=== PATIENT | female | born 1945 | race Caucasian/White ===

== ENCOUNTER 2020-10-02 11:54 | Emergency (ER) | payer MEDICARE, OTHER ==
[2020-10-02] MEDS ORDERED: Sodium Chloride 0.9% 10 ML Syringe FLUSH PRN (12:38)
--- NOTE | 2020-10-02 13:15 | EDM.PDOC ---
ED HPI GENERAL MEDICAL PROBLEM - General Chief Complaint: Respiratory Problem Stated Complaint: SOB/TROUBLE WALKING Time Seen by Provider: 10/02/20 12:36 Source of Information: Reports: Patient, RN Notes Reviewed - History of Present Illness INITIAL COMMENTS - FREE TEXT/NARRATIVE: 75 Yr old female comes in with generalized weakness, dyspnea. She had mild sx yesterday, much worse this morning. No chest pain, Abd pain, vomiting. Very occasional cough. No fever or chills. Hx of severe anemia with a Hgb of around 6.2 in June 2 months ago, etiology unknown or unclear. She states she saw her Business Support Manager just last week 5 days ago and was told everything was good at that time. She feels kind of OK at rest but today is very short of breath with exertion. Of note her oxygen was 68 per cent on room air at time of triage. - Related Data Allergies Allergy/AdvReac Type Severity Reaction Status Date / Time No Known Allergies Allergy Verified 10/02/20 12:11 Home Meds: Home Meds . [No Known Home Meds] 10/02/20 [History] Past Medical History Respiratory History: Reports: Asthma - Past Surgical History Female Surgical History: Reports: Hysterectomy Social & Family History - Tobacco Use Tobacco Use Status *Q: Never Tobacco User - Caffeine Use Caffeine Use: Reports: None - Recreational Drug Use Recreational Drug Use: No ED ROS GENERAL - Review of Systems Review Of Systems: See Below Constitutional: Denies: Fever, Chills, Diaphoresis HEENT: Reports: No Symptoms Respiratory: Reports: Shortness of Breath, Cough (occasional) Cardiovascular: Denies: Chest Pain GI/Abdominal: Denies: Abdominal Pain, Hematochezia, Melena, Nausea, Vomiting : Reports: No Symptoms Musculoskeletal: Reports: No Symptoms Neurological: Reports: Dizziness, Weakness (mild generalized). Denies: Trouble Speaking ED EXAM, GENERAL - Physical Exam Exam: See Below General Appearance: Alert, No Apparent Distress (at rest on oxygen) Head: Atraumatic Neck: Supple Respiratory/Chest: Lungs Clear, Respiratory Distress (mild tachypnea). No: Rales, Rhonchi, Wheezing Cardiovascular: Tachycardia GI/Abdominal: Soft, Non-Tender Back Exam: No: CVA Tenderness (L), CVA Tenderness (R) Extremities: Normal Inspection. No: Pedal Edema, Leg Pain Neurological: Alert, Oriented, No Motor/Sensory Deficits Skin Exam: Warm, Dry, Normal Color #1 Interpretation EKG Date: 10/02/20 Rhythm: NSR [place]: Normal P-Wave: Present QRS: Other (q waves inf. and ant. leads) ST-T: Normal Course - Vital Signs Last Recorded V/S: Last Vital Signs Temp 98.3 F 10/02/20 12:05 Pulse 100 10/02/20 12:05 Resp 24 H 10/02/20 12:05 BP 136/72 10/02/20 12:05 Pulse Ox 97 10/02/20 12:39 - Orders/Labs/Meds Orders: Active Orders 24 hr Category Date Time Status EKG 12 Lead [EKG Documentation Completion] [RC] STAT Care 10/02/20 12:39 Active Oxygen Therapy [RC] ASDIRECTED Care 10/02/20 12:39 Active Peripheral IV Care [RC] . DIRECTED Care 10/02/20 12:39 Active Chest PE [Ang Chest] [CT] Stat Exams 10/02/20 14:20 Taken Sodium Chloride 0.9% [Normal Saline] 100 ml Med 10/02/20 14:45 Active IV ASDIRECTED Sodium Chloride 0.9% [Saline Flush] Med 10/02/20 12:38 Active 10 ml FLUSH ASDIRECTED PRN Peripheral IV Insertion Adult [OM.PC] Stat Oth 10/02/20 12:39 Ordered Medication Orders Sodium Chloride (Normal Saline) 100 mls @ 60 mls/hr IV ASDIRECTED DALLIN Last Admin: 10/02/20 15:01 Dose: 60 mls/hr Documented by: WALLACE Sodium Chloride (Saline Flush) 10 ml FLUSH ASDIRECTED PRN PRN Reason: Keep Vein Open Last Admin: 10/02/20 12:49 Dose: 10 ml Documented by: ABDOUL Labs: Laboratory Tests 10/02/20 10/02/20 10/02/20 Range/Units 12:31 13:13 13:21 WBC (3.98-10.04) K/mm3 RBC (3.98-5.22) M/mm3 Hgb (11.2-15.7) gm/dl Hct (34.1-44.9) % MCV (79.4-94.8) fl MCH (25.6-32.2) pg MCHC (32.2-35.5) g/dl RDW Std Deviation (36.4-46.3) fL Plt Count (182-369) K/mm3 MPV (9.4-12.3) fl Neut % (Auto) (34.0-71.1) % Lymph % (Auto) (19.3-51.7) % [place] % (Auto) (4.7-12.5) % Eos % (Auto) (0.7-5.8) Baso % (Auto) (0.1-1.2) % Neut # (Auto) (1.56-6.13) K/mm3 Lymph # (Auto) (1.18-3.74) K/mm3 [place] # (Auto) (0.24-0.36) K/mm3 Eos # (Auto) (0.04-0.36) K/mm3 Baso # (Auto) (0.01-0.08) K/mm3 D-Dimer, Quantitative (0.19-0.50) mg/L Puncture Site Lt radial ABG pH 7.48 H (7.35-7.45) ABG pCO2 29.3 L (35.0-45.0) mmHg ABG pO2 48.0 L (80.0-100.0) mmHg ABG HCO3 21.6 L (22.0-26.0) meq/L ABG O2 Saturation 82.0 L (96.0-97.0) % ABG Base Excess -0.8 (-2-2.0) Ben Test Positive A-a Gradient 65 mmHg O2 Delivery Device Room air FiO2 21.00 (21.00-100.00) % Sodium (136-145) mEq/L Potassium (3.5-5.1) mEq/L Chloride (98-107) mEq/L Carbon Dioxide (21-32) mEq/L Anion Gap (5-15) BUN (7-18) mg/dL Creatinine (0.55-1.02) mg/dL Est Cr Clr Drug Dosing mL/min Estimated GFR (MDRD) (>60) mL/min BUN/Creatinine Ratio (14-18) Glucose (83-115) mg/dL Calcium (8.5-10.1) mg/dL Ferritin (8-252) ng/ml Total Bilirubin (0.2-1.0) mg/dL AST (15-37) U/L ALT (14-59) U/L Alkaline Phosphatase (46-116) U/L Lactate Dehydrogenase (81-234) U/L Troponin I (0.00-0.056) ng/mL C-Reactive Protein 17.1 H* (<1.0) mg/dL NT-Pro-B Natriuret Pep (0-450) pg/mL Total Protein (6.4-8.2) g/dl Albumin (3.4-5.0) g/dl Globulin gm/dL Albumin/Globulin Ratio (1-2) SARS-CoV-2 RNA (KENDALL) Negative (NEGATIVE) 10/02/20 10/02/20 10/02/20 Range/Units 13:21 13:21 13:21 WBC 9.32 (3.98-10.04) K/mm3 RBC 3.27 L (3.98-5.22) M/mm3 Hgb 10.6 L (11.2-15.7) gm/dl Hct 31.8 L (34.1-44.9) % MCV 97.2 H D (79.4-94.8) fl MCH 32.4 H (25.6-32.2) pg MCHC 33.3 (32.2-35.5) g/dl RDW Std Deviation 61.9 H (36.4-46.3) fL Plt Count 142 L (182-369) K/mm3 MPV 10.5 (9.4-12.3) fl Neut % (Auto) 72.3 H (34.0-71.1) % Lymph % (Auto) 12.6 L (19.3-51.7) % [place] % (Auto) 14.5 H (4.7-12.5) % Eos % (Auto) 0.2 L (0.7-5.8) Baso % (Auto) 0.1 (0.1-1.2) % Neut # (Auto) 6.74 H (1.56-6.13) K/mm3 Lymph # (Auto) 1.17 L (1.18-3.74) K/mm3 [place] # (Auto) 1.35 H (0.24-0.36) K/mm3 Eos # (Auto) 0.02 L (0.04-0.36) K/mm3 Baso # (Auto) 0.01 (0.01-0.08) K/mm3 D-Dimer, Quantitative 0.88 H (0.19-0.50) mg/L Puncture Site ABG pH (7.35-7.45) ABG pCO2 (35.0-45.0) mmHg ABG pO2 (80.0-100.0) mmHg ABG HCO3 (22.0-26.0) meq/L ABG O2 Saturation (96.0-97.0) % ABG Base Excess (-2-2.0) Ben Test A-a Gradient mmHg O2 Delivery Device FiO2 (21.00-100.00) % Sodium 131 L (136-145) mEq/L Potassium 4.8 (3.5-5.1) mEq/L Chloride 97 L (98-107) mEq/L Carbon Dioxide 24 (21-32) mEq/L Anion Gap 14.8 (5-15) BUN 20 H (7-18) mg/dL Creatinine 1.3 H (0.55-1.02) mg/dL Est Cr Clr Drug Dosing 35.24 mL/min Estimated GFR (MDRD) 40 (>60) mL/min BUN/Creatinine Ratio 15.4 (14-18) Glucose 99 (83-115) mg/dL Calcium 9.8 (8.5-10.1) mg/dL Ferritin (8-252) ng/ml Total Bilirubin 2.6 H (0.2-1.0) mg/dL AST 17 (15-37) U/L ALT 17 (14-59) U/L Alkaline Phosphatase 67 (46-116) U/L Lactate Dehydrogenase 328 H (81-234) U/L Troponin I 0.377 H* (0.00-0.056) ng/mL C-Reactive Protein (<1.0) mg/dL NT-Pro-B Natriuret Pep (0-450) pg/mL Total Protein 7.0 (6.4-8.2) g/dl Albumin 3.2 L (3.4-5.0) g/dl Globulin 3.8 gm/dL Albumin/Globulin Ratio 0.8 L (1-2) SARS-CoV-2 RNA (KENDALL) (NEGATIVE) 10/02/20 10/02/2020 Range/Units 13:21 13:21 15:01 WBC (3.98-10.04) K/mm3 RBC (3.98-5.22) M/mm3 Hgb (11.2-15.7) gm/dl Hct (34.1-44.9) % MCV (79.4-94.8) fl MCH (25.6-32.2) pg MCHC (32.2-35.5) g/dl RDW Std Deviation (36.4-46.3) fL Plt Count (182-369) K/mm3 MPV (9.4-12.3) fl Neut % (Auto) (34.0-71.1) % Lymph % (Auto) (19.3-51.7) % [place] % (Auto) (4.7-12.5) % Eos % (Auto) (0.7-5.8) Baso % (Auto) (0.1-1.2) % Neut # (Auto) (1.56-6.13) K/mm3 Lymph # (Auto) (1.18-3.74) K/mm3 [place] # (Auto) (0.24-0.36) K/mm3 Eos # (Auto) (0.04-0.36) K/mm3 Baso # (Auto) (0.01-0.08) K/mm3 D-Dimer, Quantitative (0.19-0.50) mg/L Puncture Site ABG pH (7.35-7.45) ABG pCO2 (35.0-45.0) mmHg ABG pO2 (80.0-100.0) mmHg ABG HCO3 (22.0-26.0) meq/L ABG O2 Saturation (96.0-97.0) % ABG Base Excess (-2-2.0) Ben Test A-a Gradient mmHg O2 Delivery Device FiO2 (21.00-100.00) % Sodium (136-145) mEq/L Potassium (3.5-5.1) mEq/L Chloride (98-107) mEq/L Carbon Dioxide (21-32) mEq/L Anion Gap (5-15) BUN (7-18) mg/dL Creatinine (0.55-1.02) mg/dL Est Cr Clr Drug Dosing mL/min Estimated GFR (MDRD) (>60) mL/min BUN/Creatinine Ratio (14-18) Glucose (83-115) mg/dL Calcium (8.5-10.1) mg/dL Ferritin 977 H (8-252) ng/ml Total Bilirubin (0.2-1.0) mg/dL AST (15-37) U/L ALT (14-59) U/L Alkaline Phosphatase (46-116) U/L Lactate Dehydrogenase (81-234) U/L Troponin I 0.326 H* (0.00-0.056) ng/mL C-Reactive Protein (<1.0) mg/dL NT-Pro-B Natriuret Pep 3850 H (0-450) pg/mL Total Protein (6.4-8.2) g/dl Albumin (3.4-5.0) g/dl Globulin gm/dL Albumin/Globulin Ratio (1-2) SARS-CoV-2 RNA (KENDALL) (NEGATIVE) Meds: Medications Generic Name Dose Route Start Last Admin Trade Name Namq PRN Reason Stop Dose Admin Sodium Chloride 100 mls @ 60 mls/hr 10/02/20 14:45 10/02/20 15:01 Normal Saline IV 60 mls/hr ASDIRECTED DALLIN Administration Sodium Chloride 10 ml 10/02/20 12:38 10/02/20 12:49 Saline Flush FLUSH 10 ml ASDIRECTED PRN Administration Keep Vein Open Discontinued Medications Generic Name Dose Route Start Last Admin Trade Name Robby PRN Reason Stop Dose Admin Furosemide 40 mg 10/02/20 15:40 10/02/20 15:53 Lasix IVPUSH 10/02/20 15:41 40 mg NOW ONE Administration Iopamidol 100 ml 10/02/20 14:31 10/02/20 15:00 Isovue-370 (76%) IVPUSH 10/02/20 14:32 100 ml ONETIME ONE Administration Sodium Chloride 10 ml 10/02/20 14:31 10/02/20 15:00 Saline Flush FLUSH 10/02/20 14:32 10 ml ONETIME ONE Administration - Re-Assessments/Exams Free Text/Narrative Re-Assessment/Exam: 10/02/20 13:45. Trop. has come back elevated at 0.377, D dimer 0.88. Hgb 10.4. CXR did not show acute findings. Covid screen did come back negative. CT Angio chest was neg. for PE, does show pulmonary vascular congestion, pulmonary nodule R middle lobe, possible small airways disease, superimposed viral pneumonitis difficult to exclude. 10/02/20 17:05. We are once again on diversion for admissions. [facility] also on diversion. Dr Don, Hospitalist for [facility] does accept patient for admission. Have given lasix 40 mg IV. She wanted to go the bathroom off oxygen. She did get short of breath and did drop her sats to 74 % soing that. O2 sats do come up and maintain mid 90's with 02 at 2 L NC. We will be sending her by ground ambulance. Departure - Departure Time of Disposition: 17:07 Disposition: DC/Tfer to Acute Hospital 02 Condition: Fair Clinical Impression: Hypoxia CHF (congestive heart failure) Qualifiers: Heart failure type: unspecified Heart failure chronicity: acute Qualified Code(s): I50.9 - Heart failure, unspecified - Discharge Information Referrals: Lisy Wayne MD [Primary Care Provider] - Forms: ED Department Discharge Sepsis Event Note (ED) - Evaluation Sepsis Screening Result: No Definite Risk - Focused Exam Vital Signs: Vital Signs Temp Pulse Resp BP Pulse Ox Pulse Ox 10/02/20 12:39 97 10/02/20 12:05 98.3 F 100 24 H 136/72 68 L - My Orders Last 24 Hours: My Active Orders 10/02/20 12:38 Sodium Chloride 0.9% [Saline Flush] 10 ml FLUSH ASDIRECTED PRN 10/02/20 12:39 EKG 12 Lead [EKG Documentation Completion] [RC] STAT Oxygen Therapy [RC] ASDIRECTED Peripheral IV Care [RC] . DIRECTED Peripheral IV Insertion Adult [OM.PC] Stat 10/02/20 14:20 Chest PE [Ang Chest] [CT] Stat 10/02/20 14:45 Sodium Chloride 0.9% [Normal Saline] 100 ml IV ASDIRECTED - Assessment/Plan Last 24 Hours: My Active Orders 10/02/20 12:38 Sodium Chloride 0.9% [Saline Flush] 10 ml FLUSH ASDIRECTED PRN 10/02/20 12:39 EKG 12 Lead [EKG Documentation Completion] [RC] STAT Oxygen Therapy [RC] ASDIRECTED Peripheral IV Care [RC] . DIRECTED Peripheral IV Insertion Adult [OM.PC] Stat 10/02/20 14:20 Chest PE [Ang Chest] [CT] Stat 10/02/20 14:45 Sodium Chloride 0.9% [Normal Saline] 100 ml IV ASDIRECTED
--- NOTE | 2020-10-02 14:18 | CR ---
PROCEDURE INFORMATION: Exam: XR Chest, 1 View Exam date and time: 10/02/2020 12:36 PM Age: 75 years old Clinical indication: Dyspnea TECHNIQUE: Imaging protocol: XR of the chest Views: Frontal portable view of the chest. COMPARISON: No relevant prior studies available. FINDINGS: Tubes, catheters and devices: EKG leads are present overlying the chest. Lungs: The lungs are clear bilaterally. The pulmonary vasculature is normal. Pleural space: No pleural effusion. No pneumothorax. Heart/Mediastinum: The heart is normal in size and contour. Bones/joints: No acute chest wall abnormality identified. IMPRESSION: No acute cardiopulmonary abnormality identified. Thank you for allowing us to participate in the care of your patient. Dictated and Authenticated by: Carlos Velasco MD 10/02/2020 2:26 PM Central Time ([place] & [place]) [facility]ENTERScarlet
[2020-10-02] MEDS ORDERED: Iopamidol 755 Mg/ML 100 ML Bottle IVPUSH ONE (14:31)
[2020-10-02] MEDS ORDERED: Sodium Chloride 0.9% 10 ML Syringe FLUSH ONE (14:31)
[2020-10-02] MEDS ORDERED: Sodium Chloride 0.9% 100 ML IV SCH (14:45)
[2020-10-02] MEDS ORDERED: Furosemide 40 MG/4 ML VIAL IVPUSH ONE (15:40)
--- NOTE | 2020-10-02 16:57 | CT ---
PROCEDURE INFORMATION: Exam: CT Chest With Contrast Exam date and time: 10/02/2020 3:43 PM Age: 75 years old Clinical indication: Patient HX: Dyspnea hypoxia pos d dimer TECHNIQUE: Imaging protocol: Computed tomography of the chest with intravenous contrast. 3D rendering (Not supervised by radiologist): MIP reconstructed images were created by the technologist. Radiation optimization: All CT scans at this facility use at least one of these dose optimization techniques: automated exposure control; mA and/or kV adjustment per patient size (includes targeted exams where dose is matched to clinical indication); or iterative reconstruction. COMPARISON: CR Chest 1V Frontal 10/02/2020 12:36 PM FINDINGS: Thyroid: The partially imaged bilateral thyroid lobes are unremarkable. Lungs: Mosaic lung attenuation is present, alternating with ground-glass opacities, consistent with small airways or small vessels disease. A 5.3 x 2.7 x 6.7 mm noncalcified pulmonary nodule is noted in the lateral segment of the right middle lobe (LOC 311.6). Pleural space: No pneumothorax. No pleural effusion. Heart: Proximal LAD coronary artery calcifications. Mediastinal space: A small sliding hiatal hernia is present above the level of the diaphragm. Pulmonary arteries: The pulmonary vasculature is congested. Aorta: Mild aortic arch, branch, and descending thoracic aortic atherosclerotic calcification without ectasia. Lymph nodes: No enlarged lymph nodes. Liver: Focal hypoattenuation of the hepatic left lobe medial segment is noted adjacent to the falciform ligament fissure, likely representing focal fatty infiltration. Kidneys and ureters: Left renal 5.7 cm benign simple cyst. Bones/joints: Degenerative disk disease is present at mid-thoracic spine disk levels. Soft tissues: Unremarkable. IMPRESSION: 1. No pulmonary embolism identified. 2. No thoracic aortic aneurysm or dissection identified. 3. Possible small airways/small vessels disease. Superimposed pneumonitis, including viral pneumonitis, is difficult to exclude. Clinical correlation is recommended. 4. Right middle lobe noncalcified pulmonary nodule. If low risk for malignancy, recommend follow-up chest CT at 6-12 months, and consider CT followup at 18-24 months. If high risk for malignancy recommend CT at 6-12 months then repeat at 18-24 months (Elham et al., Fleischner Society, 2017). 5. Pulmonary vascular congestion. 6. Coronary atherosclerosis. 7. Left renal benign simple cyst. 8. Small hiatal hernia. COMMENTS: Consistent with the [employer]'s Incidental Findings Committee white paper (J Am Germania Radiol 2018): Any incidental renal lesion less than 1 cm or classified as too small to characterize, or any incidental cystic renal lesion characterized as simple- appearing, is likely benign. No follow-up imaging is recommended for these lesions per consensus recommendations based on imaging criteria. Thank you for allowing us to participate in the care of your patient. Dictated and Authenticated by: Carlos Velasco MD 10/02/2020 4:22 PM Central Time ([place] & [place]) [facility]
== END 2020-10-02 18:00 ==
LOC: JD.ED 11:54
DX: I50.9 Heart failure, unspecified (principal); R09.02 Hypoxemia; J45.909 Unspecified asthma, uncomplicated; Z20.828 Contact with and (suspected) exposure to other viral communicable diseases
CPT/HCPCS: 36415; 36600; 71045; 71275; 80053; 82728; 82803; 83615; 83880; 84484; 85025; 85379; 86140; 93005; 96374; 99285; J1940; Q9967; U0002; 93010; 99284

== ENCOUNTER 2020-12-20 17:54 | Inpatient (IN) | payer MEDICARE, OTHER ==
[2020-12-20] MEDS ORDERED: Sodium Chloride 0.9% 10 ML Syringe FLUSH PRN (18:14)
[2020-12-20] MEDS ORDERED: Ondansetron 4 MG/2 ML SDV IVPUSH ONE (18:28)
--- NOTE | 2020-12-20 18:34 | EDM.PDOC ---
ED HPI GENERAL MEDICAL PROBLEM - General Chief Complaint: Respiratory Problem Stated Complaint: SOB COUGH WEAK Time Seen by Provider: 12/20/20 18:05 Source of Information: Reports: Patient, RN Notes Reviewed History Limitations: Reports: No Limitations - History of Present Illness INITIAL COMMENTS - FREE TEXT/NARRATIVE: Patient is a 75-year-old female who presents to the ED for evaluation of her COVID-19 illness. Patient states that she has been feeling ill for the last 10 or 12 days and they have not really improved. She was tested for COVID-19 on Thursday, and did get positive results today. Patient states she is extremely short of breath, she cannot do much of all without getting winded. With ambulation, the patient's O2 sats were 85% on room air when she got here, but did improve to roughly 91 to 92%. Patient is fairly tachypneic in the ER, respiratory rate of 28 to 30 breaths/min, pulse is 105 bpm, temperature is 98.3 F, but the patient feels warmer than that. Blood pressure is 144/70. Patient notes that she is not taking anything for her symptoms. She does note that her is also sick at home. She relates a hospitalization for a viral pneumon ia in September, for about a week. Primary care provider is Dr. Lisy Wayne, she did call her today for consultation and Dr. Wayne directed her to come to the ER for evaluation and possible IV therapy. Patient is also complaining of some phlegm in her throat, that is rather thick that she just cannot get up. She has not taken any medications for that. She does note that she is quite nauseous as well. - Related Data Allergies Allergy/AdvReac Type Severity Reaction Status Date / Time No Known Allergies Allergy Verified 12/20/20 18:05 Home Meds: Home Meds Tiotropium [Spiriva] 18 mcg INH BID 12/20/20 [History] Past Medical History HEENT History: Reports: Impaired Vision Respiratory History: Reports: Asthma, Pneumonia, Recurrent - Infectious Disease History Infectious Disease History: Reports: Novel Coronavirus (12/17/2020) - Past Surgical History Female Surgical History: Reports: Hysterectomy Social & Family History - Tobacco Use Tobacco Use Status *Q: Never Tobacco User - Caffeine Use Caffeine Use: Reports: None - Recreational Drug Use Recreational Drug Use: No ED ROS GENERAL - Review of Systems Review Of Systems: Comprehensive ROS is negative, except as noted in HPI. ED EXAM, GENERAL - Physical Exam Exam: See Below Exam Limited By: No Limitations General Appearance: Alert, WD/WN, No Apparent Distress Throat/Mouth: Normal Inspection, Normal Lips, Normal Teeth, Normal Gums, Normal Oropharynx, Normal Voice, No Airway Compromise Head: Atraumatic, Normocephalic Neck: Normal Inspection Respiratory/Chest: No Respiratory Distress, Lungs Clear, Normal Breath Sounds, No Accessory Muscle Use, Chest Non-Tender Cardiovascular: Normal Peripheral Pulses, Regular Rate, Rhythm, No Edema Peripheral Pulses: 2+: Radial (L), Radial (R) GI/Abdominal: Normal Bowel Sounds, Soft, Non-Tender, No Distention, No Mass Extremities: Normal Inspection, Normal Capillary Refill Neurological: Alert, Oriented, Normal Cognition, No Motor/Sensory Deficits Psychiatric: Normal Affect, Normal Mood Skin Exam: Warm, Dry, Intact, Normal Color, No Rash #1 Interpretation EKG Date: 12/20/20 Time: 18:11 Rhythm: NSR Rate (Beats/Min): 99 Drexel: LAD-Left Drexel Deviation (-67 ) P-Wave: Present QRS: Normal ST-T: Normal QT: Normal Comparison: NA - No Prior EKG EKG Interpretation Comments: No obvious ischemia or acute ST changes noted, reviewed by myself and Dr. Lugo. Course - Vital Signs Last Recorded V/S: Last Vital Signs Temp 98.3 F 12/20/20 18:02 Pulse 105 H 12/20/20 18:02 Resp 28 H 12/20/20 18:02 BP 144/70 H 12/20/20 18:02 Pulse Ox 90 L 12/20/20 18:02 - Orders/Labs/Meds Orders: Active Orders 24 hr Category Date Time Status EKG Documentation Completion [RC] STAT Care 12/20/20 18:14 Ordered Oxygen Therapy, ED [RC] ASDIRECTED Care 12/20/20 18:58 Ordered Peripheral IV Care [RC] . DIRECTED Care 12/20/20 18:16 Ordered Chest 1V Frontal [CR] Stat Exams 12/20/20 18:14 Ordered Sodium Chloride 0.9% [Saline Flush] Med 12/20/20 18:14 Ordered 10 ml FLUSH ASDIRECTED PRN Peripheral IV Insertion Adult [OM.PC] Routine Oth 12/20/20 18:14 Ordered Medication Orders Sodium Chloride (Saline Flush) 10 ml FLUSH ASDIRECTED PRN PRN Reason: Keep Vein Open Last Admin: 12/20/20 18:21 Dose: 10 ml Documented by: KRISTAL Labs: Laboratory Tests 12/20/20 12/20/20 12/20/20 Range/Units 18:03 18:03 18:03 WBC 3.07 L (3.98-10.04) K/mm3 RBC 3.78 L (3.98-5.22) M/mm3 Hgb 11.9 (11.2-15.7) gm/dl Hct 36.5 (34.1-44.9) % MCV 96.6 H (79.4-94.8) fl MCH 31.5 (25.6-32.2) pg MCHC 32.6 (32.2-35.5) g/dl RDW Std Deviation 43.3 (36.4-46.3) fL Plt Count 138 L (182-369) K/mm3 MPV 11.3 (9.4-12.3) fl Neutrophils % (Manual) 48 (40-60) % Band Neutrophils % 0 (0-10) % Lymphocytes % (Manual) 37 (20-40) % Atypical Lymphs % 0 % Monocytes % (Manual) 14 H (2-10) % Eosinophils % (Manual) 1 (0.7-5.8) % Basophils % (Manual) 0 L (0.1-1.2) Platelet Estimate Decreased RBC Morph Comment Normal PT 11.5 (9.7-12.0) SECONDS INR 1.08 APTT 27.1 (21.7-31.4) SECONDS D-Dimer, Quantitative 1.25 H (0.19-0.50) mg/L Puncture Site ABG pH (7.35-7.45) ABG pCO2 (35.0-45.0) mmHg ABG pO2 (80.0-100.0) mmHg ABG HCO3 (22.0-26.0) meq/L ABG O2 Saturation (96.0-97.0) % ABG Base Excess (-2-2.0) Ben Test O2 Delivery Device FiO2 (21.00-100.00) % Sodium (136-145) mEq/L Potassium (3.5-5.1) mEq/L Chloride (98-107) mEq/L Carbon Dioxide (21-32) mEq/L Anion Gap (5-15) BUN (7-18) mg/dL Creatinine (0.55-1.02) mg/dL Est Cr Clr Drug Dosing mL/min Estimated GFR (MDRD) (>60) mL/min BUN/Creatinine Ratio (14-18) Glucose (83-115) mg/dL Lactic Acid (0.4-2.0) mmol/L Calcium (8.5-10.1) mg/dL Magnesium (1.8-2.4) mg/dl Ferritin (8-252) ng/ml Total Bilirubin (0.2-1.0) mg/dL AST (15-37) U/L ALT (14-59) U/L Alkaline Phosphatase (46-116) U/L Lactate Dehydrogenase (81-234) U/L Troponin I (0.00-0.056) ng/mL C-Reactive Protein 10.9 H* (<1.0) mg/dL NT-Pro-B Natriuret Pep (0-450) pg/mL Total Protein (6.4-8.2) g/dl Albumin (3.4-5.0) g/dl Globulin gm/dL Albumin/Globulin Ratio (1-2) 12/20/20 12/20/20 12/20/20 Range/Units 18:03 18:03 18:03 WBC (3.98-10.04) K/mm3 RBC (3.98-5.22) M/mm3 Hgb (11.2-15.7) gm/dl Hct (34.1-44.9) % MCV (79.4-94.8) fl MCH (25.6-32.2) pg MCHC (32.2-35.5) g/dl RDW Std Deviation (36.4-46.3) fL Plt Count (182-369) K/mm3 MPV (9.4-12.3) fl Neutrophils % (Manual) (40-60) % Band Neutrophils % (0-10) % Lymphocytes % (Manual) (20-40) % Atypical Lymphs % % Monocytes % (Manual) (2-10) % Eosinophils % (Manual) (0.7-5.8) % Basophils % (Manual) (0.1-1.2) Platelet Estimate RBC Morph Comment PT (9.7-12.0) SECONDS INR APTT (21.7-31.4) SECONDS D-Dimer, Quantitative (0.19-0.50) mg/L Puncture Site ABG pH (7.35-7.45) ABG pCO2 (35.0-45.0) mmHg ABG pO2 (80.0-100.0) mmHg ABG HCO3 (22.0-26.0) meq/L ABG O2 Saturation (96.0-97.0) % ABG Base Excess (-2-2.0) Ben Test O2 Delivery Device FiO2 (21.00-100.00) % Sodium 134 L (136-145) mEq/L Potassium 3.5 (3.5-5.1) mEq/L Chloride 98 (98-107) mEq/L Carbon Dioxide 22 (21-32) mEq/L Anion Gap 17.5 H (5-15) BUN 19 H (7-18) mg/dL Creatinine 1.3 H (0.55-1.02) mg/dL Est Cr Clr Drug Dosing 35.24 mL/min Estimated GFR (MDRD) 40 (>60) mL/min BUN/Creatinine Ratio 14.6 (14-18) Glucose 104 (83-115) mg/dL Lactic Acid (0.4-2.0) mmol/L Calcium 9.5 (8.5-10.1) mg/dL Magnesium 1.9 (1.8-2.4) mg/dl Ferritin 1619 H (8-252) ng/ml Total Bilirubin 1.2 H (0.2-1.0) mg/dL AST 27 (15-37) U/L ALT 21 (14-59) U/L Alkaline Phosphatase 60 (46-116) U/L Lactate Dehydrogenase 407 H (81-234) U/L Troponin I < 0.017 (0.00-0.056) ng/mL C-Reactive Protein (<1.0) mg/dL NT-Pro-B Natriuret Pep 384 (0-450) pg/mL Total Protein 8.5 H (6.4-8.2) g/dl Albumin 3.7 (3.4-5.0) g/dl Globulin 4.8 gm/dL Albumin/Globulin Ratio 0.8 L (1-2) 12/20/20 12/20/20 Range/Units 18:03 18:15 WBC (3.98-10.04) K/mm3 RBC (3.98-5.22) M/mm3 Hgb (11.2-15.7) gm/dl Hct (34.1-44.9) % MCV (79.4-94.8) fl MCH (25.6-32.2) pg MCHC (32.2-35.5) g/dl RDW Std Deviation (36.4-46.3) fL Plt Count (182-369) K/mm3 MPV (9.4-12.3) fl Neutrophils % (Manual) (40-60) % Band Neutrophils % (0-10) % Lymphocytes % (Manual) (20-40) % Atypical Lymphs % % Monocytes % (Manual) (2-10) % Eosinophils % (Manual) (0.7-5.8) % Basophils % (Manual) (0.1-1.2) Platelet Estimate RBC Morph Comment PT (9.7-12.0) SECONDS INR APTT (21.7-31.4) SECONDS D-Dimer, Quantitative (0.19-0.50) mg/L Puncture Site Rt radial ABG pH 7.38 (7.35-7.45) ABG pCO2 28.0 L (35.0-45.0) mmHg ABG pO2 65.0 L (80.0-100.0) mmHg ABG HCO3 16.2 L (22.0-26.0) meq/L ABG O2 Saturation 92.0 L (96.0-97.0) % ABG Base Excess -7.3 L (-2-2.0) Ben Test Positive O2 Delivery Device Room air FiO2 0.00 L (21.00-100.00) % Sodium (136-145) mEq/L Potassium (3.5-5.1) mEq/L Chloride (98-107) mEq/L Carbon Dioxide (21-32) mEq/L Anion Gap (5-15) BUN (7-18) mg/dL Creatinine (0.55-1.02) mg/dL Est Cr Clr Drug Dosing mL/min Estimated GFR (MDRD) (>60) mL/min BUN/Creatinine Ratio (14-18) Glucose (83-115) mg/dL Lactic Acid 1.4 (0.4-2.0) mmol/L Calcium (8.5-10.1) mg/dL Magnesium (1.8-2.4) mg/dl Ferritin (8-252) ng/ml Total Bilirubin (0.2-1.0) mg/dL AST (15-37) U/L ALT (14-59) U/L Alkaline Phosphatase (46-116) U/L Lactate Dehydrogenase (81-234) U/L Troponin I (0.00-0.056) ng/mL C-Reactive Protein (<1.0) mg/dL NT-Pro-B Natriuret Pep (0-450) pg/mL Total Protein (6.4-8.2) g/dl Albumin (3.4-5.0) g/dl Globulin gm/dL Albumin/Globulin Ratio (1-2) Meds: Medications Generic Name Dose Route Start Last Admin Trade Name Freq PRN Reason Stop Dose Admin Sodium Chloride 10 ml 12/20/20 18:14 12/20/20 18:21 Saline Flush FLUSH 10 ml ASDIRECTED PRN Administration Keep Vein Open Discontinued Medications Generic Name Dose Route Start Last Admin Trade Name Freq PRN Reason Stop Dose Admin Dexamethasone 6 mg 12/20/20 19:44 12/20/20 20:13 Decadron IVPUSH 12/20/20 19:45 6 mg ONETIME ONE Administration Remdesivir 200 mg/ Sodium 250 mls @ 250 mls/hr 12/20/20 19:43 12/20/20 20:17 Chloride IV 12/20/20 19:44 250 mls/hr ONETIME ONE Administration Ondansetron HCl 4 mg 12/20/20 18:28 12/20/20 18:50 Zofran IVPUSH 12/20/20 18:29 4 mg ONETIME ONE Administration - Re-Assessments/Exams Free Text/Narrative Re-Assessment/Exam: 12/20/20 18:33 Patient presents to the ED for the evaluation of her ongoing COVID-19 illness. Patient was hypoxic when she got back to the ER room, and continues to dip down into the upper 80s with her oxygen saturations. Blood gas will be performed, will get labs for evaluation of her illness however I do not believe she is a candidate for outpatient monoclonal antibody therapy, I do believe she would benefit more from hospitalization with IV remdesivir and dexamethasone, patient is agreeable to this plan, will try to call Dr. Nguyen, our hospitalist to get her admitted due to her COVID-19 illness. 12/20/20 20:19 I did talk with Dr. Nguyen, our hospitalist revenue liaison, labs are are elevated, in line with a COVID-19 infection. He does recommend starting IV remdesivir, and dexamethasone. Patient was given 4 mg Zofran for her nausea as well. Departure - Departure Time of Disposition: 20:21 Disposition: Admitted As Inpatient 64 Condition: Good Clinical Impression: COVID-19 - Discharge Information *PRESCRIPTION DRUG MONITORING PROGRAM REVIEWED*: No *COPY OF PRESCRIPTION DRUG MONITORING REPORT IN PATIENT LESIA: No Forms: ED Department Discharge Sepsis Event Note (ED) - Evaluation Sepsis Screening Result: No Definite Risk - Focused Exam Vital Signs: Vital Signs Temp Pulse Resp BP Pulse Ox 12/20/20 18:02 98.3 F 105 H 28 H 144/70 H 90 L - My Orders Last 24 Hours: My Active Orders 12/20/20 18:14 EKG Documentation Completion [RC] STAT Chest 1V Frontal [CR] Stat Sodium Chloride 0.9% [Saline Flush] 10 ml FLUSH ASDIRECTED PRN Peripheral IV Insertion Adult [OM.PC] Routine 12/20/20 18:16 Peripheral IV Care [RC] . DIRECTED 12/20/20 18:58 Oxygen Therapy, ED [RC] ASDIRECTED - Assessment/Plan Last 24 Hours: My Active Orders 12/20/20 18:14 EKG Documentation Completion [RC] STAT Chest 1V Frontal [CR] Stat Sodium Chloride 0.9% [Saline Flush] 10 ml FLUSH ASDIRECTED PRN Peripheral IV Insertion Adult [OM.PC] Routine 12/20/20 18:16 Peripheral IV Care [RC] . DIRECTED 12/20/20 18:58 Oxygen Therapy, ED [RC] ASDIRECTED
[2020-12-20] MEDS ORDERED: REMDESIVIR 200 MG in Sodium Chloride 0.9% 250 ML IV ONE (19:43)
[2020-12-20] MEDS ORDERED: Dexamethasone 10 MG/ML SDV IVPUSH ONE (19:44)
[2020-12-20] MEDS ORDERED: Acetaminophen 325 MG Tab PO PRN (23:28)
[2020-12-20] MEDS ORDERED: Ondansetron 4 MG/2 ML SDV IV PRN (23:28)
[2020-12-20] MEDS ORDERED: oxyCODONE 5 MG Tab PO PRN (23:28)
[2020-12-20] MEDS ORDERED: Albuterol 6.7 GM Inhaler INH PRN (23:33)
[2020-12-21 06:40] LABS: VITAMIN D,25-HYDROXY 20.9 ng/ml (30.0-100.0)
[2020-12-21] MEDS: Tiotropium Bromide 4 GM Inhalation Spray (2.5mcg/1 dose; 10 doses) INH SCH (08:04)
[2020-12-21] MEDS: Dexamethasone 4 MG Tab PO SCH (08:32)
[2020-12-21] MEDS: Enoxaparin 40 MG/0.4 ML Syringe SUBCUT SCH (08:32)
[2020-12-21] MEDS: Aspirin 81 MG Tab.EC PO SCH (08:34)
[2020-12-21] MEDS: Zinc Sulfate 220 MG Cap PO SCH (08:34)
[2020-12-21] MEDS: Cholecalciferol (Vitamin D3) 5,000 UNIT Cap PO SCH (08:34)
[2020-12-21] MEDS: Famotidine 20 MG Tab PO SCH (08:35)
--- NOTE | 2020-12-21 08:59 | CR ---
Chest: Portable view of the chest was obtained. Comparison: Prior chest x-ray of 08/07/20. Heart size and mediastinum are within normal limits. Slight tortuosity of the thoracic aorta is seen. Lung markings are increased on both sides of the chest. Lungs otherwise are clear with no definite alveolar type densities. Bony structures are grossly intact. Impression: 1. Findings suspicious for rather diffuse bronchitis most likely of COVID etiology. Diagnostic code #3
--- NOTE | 2020-12-21 15:33 | PCM.HP.2 ---
H&P History of Present Illness - General Date of Service: 12/21/20 Admit Problem/Dx: Admission Diagnosis/Problem Admission Diagnosis/Problem Hypoxia - History of Present Illness Initial Comments - Free Text/Narative: 75-year-old female with shortness of breath and dyspnea on exertion for the last 10 to 12 days presents from the clinic to the emergency department with no improvement in her symptoms. Patient was tested on December 17, 2020 and the positive swab came back yesterday December 20, 2020. She states that in the fall she was also hospitalized for a viral pneumonia that was not COVID-19. She does have a history of asthma. She was doing very well until approximately 6 months ago when she developed increasing symptoms of shortness of breath. When she presented to the emergency department with her , who is also having symptoms, she was tachypneic with respiratory rate in the upper 20s and oxygen saturations at rest of 91 to 92%. On ambulation her oxygen saturations were 85%. She denies any fever or chills. She has not had any syncopal episodes. She does have some postnasal drip like phlegm. Her initial blood work showed a WBC of 3.07 with platelets of 138 both consistent with Covid infection. D-dimer was 1.25 and her PO2 on ABG on room air was 65.0. She had a slight anion gap of 17.5, creatinine of 1.3 with an estimated GFR of 40. Ferritin was 1619 with total bilirubin of 1.2. LDH 407 with C-reactive protein of 10.9. Patient was started on remdesivir and dexamethasone in the emergency department. 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: Endocrine/Metabolic History: Reports: Obesity/BMI 30+ Do You Give Correction Boluses or Sliding Scale: No - Infectious Disease History Infectious Disease History: Reports: Novel Coronavirus - Past Surgical History HEENT Surgical History: Reports: None Respiratory Surgical History: Reports: None GI Surgical History: Reports: None Female Surgical History: Reports: Hysterectomy Endocrine Surgical History: Reports: None Social & Family History - Family History Family Medical History: No Pertinent Family History - Tobacco Use Tobacco Use Status *Q: Never Tobacco User Second Hand Smoke Exposure: Yes - Caffeine Use Caffeine Use: Reports: None - Recreational Drug Use Recreational Drug Use: No H&P Review of Systems - Review of Systems: Review Of Systems: Comprehensive ROS is negative, except as noted in HPI. Exam - Exam Exam: See Below - Vital Signs Vital Signs: Last Vital Signs Temp 97.7 F 12/21/20 12:46 Pulse 68 12/21/20 12:46 Resp 22 H 12/21/20 12:46 BP 126/77 12/21/20 12:46 Pulse Ox 98 12/21/20 12:46 Weight: 163 lb 12.8 oz - Exam Quality Assessment: Supplemental Oxygen General: Alert, Oriented, 4 HEENT: Conjunctiva Clear, Mucosa Moist & [place], Normal Nasal Septum Lungs: Normal Respiratory Effort, Rales Cardiovascular: Regular Rate, Regular Rhythm GI/Abdominal Exam: Normal Bowel Sounds, Soft, Non-Tender, No Organomegaly, No Distention, No Abnormal Bruit Extremities: Normal Inspection, Normal Range of Motion, Non-Tender, No Pedal Edema, Normal Capillary Refill Peripheral Pulses: 2+: Posterior Tibial (L), Posterior Tibial (R), Dorsalis Pedis (L), Dorsalis Pedis (R) Skin: Warm, Dry, Intact Psychiatric: Alert, Normal Affect, Normal Mood - Patient Data Lab Results Last 24 hrs: Laboratory Results - last 24 hr 12/20/20 12/20/20 12/20/20 Range/Units 18:03 18:03 18:03 WBC 3.07 L (3.98-10.04) K/mm3 RBC 3.78 L (3.98-5.22) M/mm3 Hgb 11.9 (11.2-15.7) gm/dl Hct 36.5 (34.1-44.9) % MCV 96.6 H (79.4-94.8) fl MCH 31.5 (25.6-32.2) pg MCHC 32.6 (32.2-35.5) g/dl RDW Std Deviation 43.3 (36.4-46.3) fL Plt Count 138 L (182-369) K/mm3 MPV 11.3 (9.4-12.3) fl Neut % (Auto) (34.0-71.1) % Lymph % (Auto) (19.3-51.7) % [place] % (Auto) (4.7-12.5) % Eos % (Auto) (0.7-5.8) Baso % (Auto) (0.1-1.2) % Neut # (Auto) (1.56-6.13) K/mm3 Lymph # (Auto) (1.18-3.74) K/mm3 [place] # (Auto) (0.24-0.36) K/mm3 Eos # (Auto) (0.04-0.36) K/mm3 Baso # (Auto) (0.01-0.08) K/mm3 Neutrophils % (Manual) 48 (40-60) % Band Neutrophils % 0 (0-10) % Lymphocytes % (Manual) 37 (20-40) % Atypical Lymphs % 0 % Monocytes % (Manual) 14 H (2-10) % Eosinophils % (Manual) 1 (0.7-5.8) % Basophils % (Manual) 0 L (0.1-1.2) Manual Slide Review Platelet Estimate Decreased RBC Morph Comment Normal PT 11.5 (9.7-12.0) SECONDS INR 1.08 APTT 27.1 (21.7-31.4) SECONDS D-Dimer, Quantitative 1.25 H (0.19-0.50) mg/L Puncture Site ABG pH (7.35-7.45) ABG pCO2 (35.0-45.0) mmHg ABG pO2 (80.0-100.0) mmHg ABG HCO3 (22.0-26.0) meq/L ABG O2 Saturation (96.0-97.0) % ABG Base Excess (-2-2.0) Ben Test O2 Delivery Device FiO2 (21.00-100.00) % Sodium (136-145) mEq/L Potassium (3.5-5.1) mEq/L Chloride (98-107) mEq/L Carbon Dioxide (21-32) mEq/L Anion Gap (5-15) BUN (7-18) mg/dL Creatinine (0.55-1.02) mg/dL Est Cr Clr Drug Dosing mL/min Estimated GFR (MDRD) (>60) mL/min BUN/Creatinine Ratio (14-18) Glucose (83-115) mg/dL Lactic Acid (0.4-2.0) mmol/L Calcium (8.5-10.1) mg/dL Phosphorus (2.6-4.7) mg/dL Magnesium (1.8-2.4) mg/dl Ferritin (8-252) ng/ml Total Bilirubin (0.2-1.0) mg/dL AST (15-37) U/L ALT (14-59) U/L Alkaline Phosphatase (46-116) U/L Lactate Dehydrogenase (81-234) U/L Troponin I (0.00-0.056) ng/mL C-Reactive Protein 10.9 H* (<1.0) mg/dL NT-Pro-B Natriuret Pep (0-450) pg/mL Total Protein (6.4-8.2) g/dl Albumin (3.4-5.0) g/dl Globulin gm/dL Albumin/Globulin Ratio (1-2) Vitamin D 25-Hydroxy (30.0-100.0) ng/ml 12/20/20 12/20/20 12/20/20 Range/Units 18:03 18:03 18:03 WBC (3.98-10.04) K/mm3 RBC (3.98-5.22) M/mm3 Hgb (11.2-15.7) gm/dl Hct (34.1-44.9) % MCV (79.4-94.8) fl MCH (25.6-32.2) pg MCHC (32.2-35.5) g/dl RDW Std Deviation (36.4-46.3) fL Plt Count (182-369) K/mm3 MPV (9.4-12.3) fl Neut % (Auto) (34.0-71.1) % Lymph % (Auto) (19.3-51.7) % Republic % (Auto) (4.7-12.5) % Eos % (Auto) (0.7-5.8) Baso % (Auto) (0.1-1.2) % Neut # (Auto) (1.56-6.13) K/mm3 Lymph # (Auto) (1.18-3.74) K/mm3 [place] # (Auto) (0.24-0.36) K/mm3 Eos # (Auto) (0.04-0.36) K/mm3 Baso # (Auto) (0.01-0.08) K/mm3 Neutrophils % (Manual) (40-60) % Band Neutrophils % (0-10) % Lymphocytes % (Manual) (20-40) % Atypical Lymphs % % Monocytes % (Manual) (2-10) % Eosinophils % (Manual) (0.7-5.8) % Basophils % (Manual) (0.1-1.2) Manual Slide Review Platelet Estimate RBC Morph Comment PT (9.7-12.0) SECONDS INR APTT (21.7-31.4) SECONDS D-Dimer, Quantitative (0.19-0.50) mg/L Puncture Site ABG pH (7.35-7.45) ABG pCO2 (35.0-45.0) mmHg ABG pO2 (80.0-100.0) mmHg ABG HCO3 (22.0-26.0) meq/L ABG O2 Saturation (96.0-97.0) % ABG Base Excess (-2-2.0) Ben Test O2 Delivery Device FiO2 (21.00-100.00) % Sodium 134 L (136-145) mEq/L Potassium 3.5 (3.5-5.1) mEq/L Chloride 98 (98-107) mEq/L Carbon Dioxide 22 (21-32) mEq/L Anion Gap 17.5 H (5-15) BUN 19 H (7-18) mg/dL Creatinine 1.3 H (0.55-1.02) mg/dL Est Cr Clr Drug Dosing 35.24 mL/min Estimated GFR (MDRD) 40 (>60) mL/min BUN/Creatinine Ratio 14.6 (14-18) Glucose 104 (83-115) mg/dL Lactic Acid (0.4-2.0) mmol/L Calcium 9.5 (8.5-10.1) mg/dL Phosphorus (2.6-4.7) mg/dL Magnesium 1.9 (1.8-2.4) mg/dl Ferritin 1619 H (8-252) ng/ml Total Bilirubin 1.2 H (0.2-1.0) mg/dL AST 27 (15-37) U/L ALT 21 (14-59) U/L Alkaline Phosphatase 60 (46-116) U/L Lactate Dehydrogenase 407 H (81-234) U/L Troponin I < 0.017 (0.00-0.056) ng/mL C-Reactive Protein (<1.0) mg/dL NT-Pro-B Natriuret Pep 384 (0-450) pg/mL Total Protein 8.5 H (6.4-8.2) g/dl Albumin 3.7 (3.4-5.0) g/dl Globulin 4.8 gm/dL Albumin/Globulin Ratio 0.8 L (1-2) Vitamin D 25-Hydroxy (30.0-100.0) ng/ml 12/20/20 12/20/20 12/21/20 Range/Units 18:03 18:15 04:44 WBC (3.98-10.04) K/mm3 RBC (3.98-5.22) M/mm3 Hgb (11.2-15.7) gm/dl Hct (34.1-44.9) % MCV (79.4-94.8) fl MCH (25.6-32.2) pg MCHC (32.2-35.5) g/dl RDW Std Deviation (36.4-46.3) fL Plt Count (182-369) K/mm3 MPV (9.4-12.3) fl Neut % (Auto) (34.0-71.1) % Lymph % (Auto) (19.3-51.7) % [place] % (Auto) (4.7-12.5) % Eos % (Auto) (0.7-5.8) Baso % (Auto) (0.1-1.2) % Neut # (Auto) (1.56-6.13) K/mm3 Lymph # (Auto) (1.18-3.74) K/mm3 [place] # (Auto) (0.24-0.36) K/mm3 Eos # (Auto) (0.04-0.36) K/mm3 Baso # (Auto) (0.01-0.08) K/mm3 Neutrophils % (Manual) (40-60) % Band Neutrophils % (0-10) % Lymphocytes % (Manual) (20-40) % Atypical Lymphs % % Monocytes % (Manual) (2-10) % Eosinophils % (Manual) (0.7-5.8) % Basophils % (Manual) (0.1-1.2) Manual Slide Review Platelet Estimate RBC Morph Comment PT (9.7-12.0) SECONDS INR APTT (21.7-31.4) SECONDS D-Dimer, Quantitative (0.19-0.50) mg/L Puncture Site Rt radial ABG pH 7.38 (7.35-7.45) ABG pCO2 28.0 L (35.0-45.0) mmHg ABG pO2 65.0 L (80.0-100.0) mmHg ABG HCO3 16.2 L (22.0-26.0) meq/L ABG O2 Saturation 92.0 L (96.0-97.0) % ABG Base Excess -7.3 L (-2-2.0) Ben Test Positive O2 Delivery Device Room air FiO2 0.00 L (21.00-100.00) % Sodium 132 L (136-145) mEq/L Potassium 4.0 (3.5-5.1) mEq/L Chloride 99 (98-107) mEq/L Carbon Dioxide 19 L (21-32) mEq/L Anion Gap 18.0 H (5-15) BUN 20 H (7-18) mg/dL Creatinine 1.0 (0.55-1.02) mg/dL Est Cr Clr Drug Dosing 45.82 mL/min Estimated GFR (MDRD) 54 (>60) mL/min BUN/Creatinine Ratio 20.0 H (14-18) Glucose 145 H (83-115) mg/dL Lactic Acid 1.4 (0.4-2.0) mmol/L Calcium 9.1 (8.5-10.1) mg/dL Phosphorus 4.1 (2.6-4.7) mg/dL Magnesium 2.0 (1.8-2.4) mg/dl Ferritin (8-252) ng/ml Total Bilirubin 0.9 (0.2-1.0) mg/dL AST 20 (15-37) U/L ALT 16 (14-59) U/L Alkaline Phosphatase 51 (46-116) U/L Lactate Dehydrogenase (81-234) U/L Troponin I (0.00-0.056) ng/mL C-Reactive Protein 9.4 H* (<1.0) mg/dL NT-Pro-B Natriuret Pep (0-450) pg/mL Total Protein 7.5 (6.4-8.2) g/dl Albumin 3.2 L (3.4-5.0) g/dl Globulin 4.3 gm/dL Albumin/Globulin Ratio 0.7 L (1-2) Vitamin D 25-Hydroxy 20.9 L (30.0-100.0) ng/ml 12/21/20 12/21/20 Range/Units 04:44 04:44 WBC 1.05 L* (3.98-10.04) K/mm3 RBC 3.43 L (3.98-5.22) M/mm3 Hgb 10.8 L (11.2-15.7) gm/dl Hct 32.9 L (34.1-44.9) % MCV 95.9 H (79.4-94.8) fl MCH 31.5 (25.6-32.2) pg MCHC 32.8 (32.2-35.5) g/dl RDW Std Deviation 42.2 (36.4-46.3) fL Plt Count 108 L (182-369) K/mm3 MPV 11.2 (9.4-12.3) fl Neut % (Auto) 39.0 (34.0-71.1) % Lymph % (Auto) 56.2 H (19.3-51.7) % [place] % (Auto) 3.8 L (4.7-12.5) % Eos % (Auto) 0 L (0.7-5.8) Baso % (Auto) 0.0 L (0.1-1.2) % Neut # (Auto) 0.41 L (1.56-6.13) K/mm3 Lymph # (Auto) 0.59 L (1.18-3.74) K/mm3 [place] # (Auto) 0.04 L (0.24-0.36) K/mm3 Eos # (Auto) 0.00 L (0.04-0.36) K/mm3 Baso # (Auto) 0.00 L (0.01-0.08) K/mm3 Neutrophils % (Manual) (40-60) % Band Neutrophils % (0-10) % Lymphocytes % (Manual) (20-40) % Atypical Lymphs % % Monocytes % (Manual) (2-10) % Eosinophils % (Manual) (0.7-5.8) % Basophils % (Manual) (0.1-1.2) Manual Slide Review Abnormal smear Platelet Estimate RBC Morph Comment PT (9.7-12.0) SECONDS INR APTT (21.7-31.4) SECONDS D-Dimer, Quantitative 1.63 H (0.19-0.50) mg/L Puncture Site ABG pH (7.35-7.45) ABG pCO2 (35.0-45.0) mmHg ABG pO2 (80.0-100.0) mmHg ABG HCO3 (22.0-26.0) meq/L ABG O2 Saturation (96.0-97.0) % ABG Base Excess (-2-2.0) Ben Test O2 Delivery Device FiO2 (21.00-100.00) % Sodium (136-145) mEq/L Potassium (3.5-5.1) mEq/L Chloride (98-107) mEq/L Carbon Dioxide (21-32) mEq/L Anion Gap (5-15) BUN (7-18) mg/dL Creatinine (0.55-1.02) mg/dL Est Cr Clr Drug Dosing mL/min Estimated GFR (MDRD) (>60) mL/min BUN/Creatinine Ratio (14-18) Glucose (83-115) mg/dL Lactic Acid (0.4-2.0) mmol/L Calcium (8.5-10.1) mg/dL Phosphorus (2.6-4.7) mg/dL Magnesium (1.8-2.4) mg/dl Ferritin (8-252) ng/ml Total Bilirubin (0.2-1.0) mg/dL AST (15-37) U/L ALT (14-59) U/L Alkaline Phosphatase (46-116) U/L Lactate Dehydrogenase (81-234) U/L Troponin I (0.00-0.056) ng/mL C-Reactive Protein (<1.0) mg/dL NT-Pro-B Natriuret Pep (0-450) pg/mL Total Protein (6.4-8.2) g/dl Albumin (3.4-5.0) g/dl Globulin gm/dL Albumin/Globulin Ratio (1-2) Vitamin D 25-Hydroxy (30.0-100.0) ng/ml Result Diagrams: 12/21/20 04:44 12/21/20 04:44 Imaging Impressions Last 24 hrs: Chest x-ray showed findings suspicious for diffuse bronchitis most likely secondary to COVID-19. Sepsis Event Note - Evaluation Sepsis Screening Result: No Definite Risk - Focused Exam Vital Signs: Vital Signs Temp Pulse Resp BP Pulse Ox Pulse Ox Pulse Ox 12/21/20 12:46 97.7 F 68 22 H 126/77 98 12/21/20 08:04 91 L 12/21/20 07:38 97.3 F 69 16 114/87 95 12/21/20 06:02 97 - Problem List (1) COVID-19 SNOMED Code(s): 594466913 ICD Code: U07.1 - COVID-19 Status: Acute Current Visit: No (2) Hypoxia SNOMED Code(s): 382947954 ICD Code: R09.02 - HYPOXEMIA Status: Acute Current Visit: No (3) Asthma SNOMED Code(s): 115446914 ICD Code: J45.909 - UNSPECIFIED ASTHMA, UNCOMPLICATED Status: Acute Current Visit: Yes Problem List Initiated/Reviewed/Updated: Yes Orders Last 24hrs: Active Orders 24 hr Category Date Time Status Admission Status [Patient Status] [ADT] Routine ADT 12/20/20 21:04 Active Cardiac Monitoring [RC] . DIRECTED Care 12/20/20 23:30 Active Oxygen Therapy [RC] PRN Care 12/20/20 23:28 Active Positioning, Patient [RC] ASDIRECTED Care 12/20/20 23:30 Active RT Chest Physiotherapy [RC] ASDIRECTED Care 12/20/20 23:33 Active RT Incentive Spirometry [RC] ASDIRECTED Care 12/20/20 23:30 Active Up With Assistance [RC] ASDIRECTED Care 12/20/20 23:28 Active VTE/DVT Education [RC] PER UNIT ROUTINE Care 12/20/20 23:28 Active Vital Signs [RC] 04,08,12,16,20,00 Care 12/20/20 23:28 Active Regular Diet [DIET] Diet 12/21/20 Breakfast Active Acetaminophen [TylenoL] Med 12/20/20 23:28 Active 650 mg PO Q4H PRN Albuterol [Proventil HFA] Med 12/20/20 23:33 Active See Dose Instructions INH Q4H PRN Aspirin [Halfprin] Med 12/21/20 09:00 Active 81 mg PO DAILY Cholecalciferol (Vitamin D3) [Vitamin D3] Med 12/21/20 09:00 Active 5,000 unit PO DAILY Enoxaparin [Lovenox] Med 12/21/20 09:00 Active 40 mg SUBCUT DAILY Famotidine [Pepcid] Med 12/21/20 09:00 Active 20 mg PO DAILY Ondansetron [Zofran] Med 12/20/20 23:28 Active 4 mg IV Q4H PRN Remdesivir 100 mg Med 12/21/20 21:00 Active Sodium Chloride 0.9% [Normal Saline] 100 ml IV Q24H Sodium Chloride 0.9% [Saline Flush] Med 12/20/20 18:14 Active 10 ml FLUSH ASDIRECTED PRN Tiotropium [place] [Spiriva Respimat] Med 12/21/20 09:00 Active 0 gm INH DAILY Zinc Sulfate [Zincate] Med 12/21/20 09:00 Active 220 mg PO DAILY dexAMETHasone Med 12/21/20 09:00 Active 6 mg PO DAILY oxyCODONE Med 12/20/20 23:28 Active 5 mg PO Q4H PRN Isolation [COMM] Stat Oth 12/20/20 23:30 Ordered Peripheral IV Insertion Adult [OM.PC] Routine Oth 12/20/20 18:14 Ordered Resuscitation Status Routine Resus Stat 12/20/20 23:28 Ordered Medication Orders Acetaminophen (Tylenol) 650 mg PO Q4H PRN PRN Reason: Pain (Mild 1-3)/fever Albuterol (Proventil Hfa) 0 gm INH Q4H PRN PRN Reason: Shortness of Breath Aspirin (Halfprin) 81 mg PO DAILY [facility] Last Admin: 12/21/20 08:34 Dose: 81 mg Documented by: MICHAEL Cholecalciferol (Vitamin D3) 5,000 unit PO DAILY [facility] Last Admin: 12/21/20 08:34 Dose: 5,000 unit Documented by: MICHAEL Dexamethasone (Dexamethasone) 6 mg PO DAILY [facility] Stop: 12/29/20 09:01 Last Admin: 12/21/20 08:32 Dose: 6 mg Documented by: MICHAEL Enoxaparin Sodium (Lovenox) 40 mg SUBCUT DAILY [facility] Last Admin: 12/21/20 08:32 Dose: 40 mg Documented by: MICHAEL Famotidine (Pepcid) 20 mg PO DAILY [facility] Last Admin: 12/21/20 08:35 Dose: 20 mg Documented by: MICHAEL Remdesivir 100 mg/ Sodium (Chloride) 100 mls @ 100 mls/hr IV Q24H [facility] Stop: 12/24/20 21:59 Ondansetron HCl (Zofran) 4 mg IV Q4H PRN PRN Reason: Nausea/Vomiting Oxycodone HCl (Oxycodone) 5 mg PO Q4H PRN PRN Reason: Pain (moderate 4-6) Sodium Chloride (Saline Flush) 10 ml FLUSH ASDIRECTED PRN PRN Reason: Keep Vein Open Last Admin: 12/20/20 18:21 Dose: 10 ml Documented by: KRISTAL Tiotropium [place] (Spiriva Respimat) 0 gm INH DAILY [facility] Last Admin: 12/21/20 08:04 Dose: 4 gm Documented by: JAYME Zinc Sulfate (Zincate) 220 mg PO DAILY [facility] Last Admin: 12/21/20 08:34 Dose: 220 mg Documented by: MICHAEL Assessment/Plan Comment:: Assessment 75-year-old female with history of asthma and 10 to 12 days of increasing sh ortness of breath was tested positive on December 17 for COVID-19. Asthma * Oxygen saturations in the low 90s at rest and mid to upper 80s with activity * Requiring 1 to 2 L FiO2 in the emergency department * Received both her first dose of remdesivir and dexamethasone in the emergency department * LeukopeniaWBC 3.07, thrombocytopenia, platelets 138 * D-dimer 1.25, CRP 10.9 ferritin 1619 * ABG: pH 7.38, PCO2 28.0, PO2 65, bicarb 16.2 on room air * On Spiriva Plan * Admit to floor on continuous pulse ox * FiO2 to keep SPO2 between 88 and 94% * Continue dexamethasone and remdesivir * Get vitamin D level * Start vitamin D 5000 units daily, zinc, Pepcid, * Follow daily Covid labs * No need at this time to start antibiotics * VTE prophylaxis with Lovenox * CODE STATUS: Full code - Mortality Measure Prognosis:: Good
[2020-12-21] MEDS ORDERED: REMDESIVIR 100 MG in Sodium Chloride 0.9% 100 ML IV SCH ×2 (19:00→21:00)
[2020-12-22] MEDS: Tiotropium Bromide 4 GM Inhalation Spray (2.5mcg/1 dose; 10 doses) INH SCH (08:05)
[2020-12-22] MEDS: Cholecalciferol (Vitamin D3) 5,000 UNIT Cap PO SCH (09:19)
[2020-12-22] MEDS: Dexamethasone 4 MG Tab PO SCH (09:19)
[2020-12-22] MEDS: Zinc Sulfate 220 MG Cap PO SCH (09:19)
[2020-12-22] MEDS: Aspirin 81 MG Tab.EC PO SCH (09:19)
[2020-12-22] MEDS: Famotidine 20 MG Tab PO SCH (09:19)
[2020-12-22] MEDS: Enoxaparin 40 MG/0.4 ML Syringe SUBCUT SCH (09:20)
--- NOTE | 2020-12-22 11:42 | PCM.DCSUM1 ---
Discharge Summary - Hospital Course HPI Initial Comments: 75-year-old female with shortness of breath and dyspnea on exertion for the last 10 to 12 days presents from the clinic to the emergency department with no improvement in her symptoms. Patient was tested on December 17, 2020 and the positive swab came back yesterday December 20, 2020. She states that in the fall she was also hospitalized for a viral pneumonia that was not COVID-19. She does have a history of asthma. She was doing very well until approximately 6 months ago when she developed increasing symptoms of shortness of breath. When she presented to the emergency department with her , who is also having symptoms, she was tachypneic with respiratory rate in the upper 20s and oxygen saturations at rest of 91 to 92%. On ambulation her oxygen saturations were 85%. She denies any fever or chills. She has not had any syncopal episodes. She does have some postnasal drip like phlegm. Her initial blood work showed a WBC of 3.07 with platelets of 138 both consistent with Covid infection. D-dimer was 1.25 and her PO2 on ABG on room air was 65.0. She had a slight anion gap of 17.5, creatinine of 1.3 with an estimated GFR of 40. Ferritin was 1619 with total bilirubin of 1.2. LDH 407 with C-reactive protein of 10.9. Patient was started on remdesivir and dexamethasone in the emergency department. Assessment 75-year-old female with history of asthma and 10 to 12 days of increasing shortness of breath was tested positive on December 17 for COVID-19. Asthma * Oxygen saturations in the low 90s at rest and mid to upper 80s with activity * Requiring 1 to 2 L FiO2 in the emergency department * Received both her first dose of remdesivir and dexamethasone in the emergency department * LeukopeniaWBC 3.07, thrombocytopenia, platelets 138 * D-dimer 1.25, CRP 10.9 ferritin 1619 * ABG: pH 7.38, PCO2 28.0, PO2 65, bicarb 16.2 on room air * On Spiriva Plan * Admit to floor on continuous pulse ox * FiO2 to keep SPO2 between 88 and 94% * Continue dexamethasone and remdesivir * Get vitamin D level * Start vitamin D 5000 units daily, zinc, Pepcid, * Follow daily Covid labs * No need at this time to start antibiotics * VTE prophylaxis with Lovenox * CODE STATUS: Full code - Mortality Measure Prognosis:: Good Diagnosis: Stroke: No - Discharge Data Discharge Date: 12/22/20 Discharge Disposition: Home, Self-Care 01 Condition: Good - Referral to Home Health Primary Care Physician: Lisy Wayne MD - Discharge Diagnosis/Problem(s) (1) COVID-19 SNOMED Code(s): 607632053 ICD Code: U07.1 - COVID-19 Status: Acute Current Visit: No (2) Hypoxia SNOMED Code(s): 717555724 ICD Code: R09.02 - HYPOXEMIA Status: Acute Current Visit: No (3) Asthma SNOMED Code(s): 813421026 ICD Code: J45.909 - UNSPECIFIED ASTHMA, UNCOMPLICATED Status: Acute Current Visit: Yes (4) Low serum vitamin D SNOMED Code(s): 579243256, 199078222 ICD Code: R79.89 - OTHER SPECIFIED ABNORMAL FINDINGS OF BLOOD CHEMISTRY Status: Acute Current Visit: Yes - Patient Summary/Data Hospital Course: Teodora did well. She did not require oxygen after day 1. She received 2 doses of remdesivir and 3 doses of dexamethasone. She was able to ambulate without difficulty and oxygen saturations did drop somewhat during sleeping but not below 88. She will be discharged on 2 more days of dexamethasone and follow-up with her primary care provider. - Patient Instructions Diet: Usual Diet as Tolerated Driving: May Drive Today Showering/Bathing: May Shower Other/Special Instructions: Please check your oxygen at home and if your oxygenation is lower than 88% please return to the emergency department. Follow-up with your primary care in 1 to 2 weeks. - Discharge Plan *PRESCRIPTION DRUG MONITORING PROGRAM REVIEWED*: No *COPY OF PRESCRIPTION DRUG MONITORING REPORT IN PATIENT LESIA: No Prescriptions/Med Rec: dexAMETHasone [Dexamethasone] 6 mg PO DAILY #2 tablet Cholecalciferol (Vitamin D3) [Vitamin D3] 5,000 unit PO DAILY #30 cap Home Medications: Home Meds Tiotropium [Spiriva HandiHaler] 18 mcg INH BID 12/20/20 [History] Aspirin [Halfprin] 81 mg PO DAILY tab.ec 12/22/20 [Rx] Cholecalciferol (Vitamin D3) [Vitamin D3] 5,000 unit PO DAILY #30 cap 12/22/20 [Rx] dexAMETHasone [Dexamethasone] 6 mg PO DAILY #2 tablet 12/22/20 [Rx] Oxygen Therapy Mode: Room Air Patient Handouts: Sepsis, Diagnosis, Adult Forms: ED Department Discharge Referrals: Lisy Wayne MD [Primary Care Provider] - (please call and schedule a follow up appointment with your primary care provider for within 7-10 days) - Discharge Summary/Plan Comment DC Time >30 min.: Yes - General Info Date of Service: 12/22/20 Admission Dx/Problem (Free Text: Admission Diagnosis/Problem Admission Diagnosis/Problem Hypoxia Subjective Update: Patient has a good appetite and denies any shortness of breath. Functional Status: Reports: Pain Controlled - Review of Systems General: Reports: No Symptoms HEENT: Reports: No Symptoms Pulmonary: Reports: No Symptoms Cardiovascular: Reports: No Symptoms Gastrointestinal: Reports: No Symptoms Musculoskeletal: Reports: No Symptoms Skin: Reports: No Symptoms Neurological: Reports: No Symptoms Psychiatric: Reports: No Symptoms - Patient Data Vitals - Most Recent: Last Vital Signs Temp 97.3 F 12/22/20 04:28 Pulse 68 12/22/20 04:28 Resp 20 12/22/20 04:28 BP 122/71 12/22/20 04:28 Pulse Ox 91 L 12/22/20 08:06 Weight - Most Recent: 163 lb 3.2 oz I&O - Last 24 hours: Intake & Output 12/21/20 12/22/20 12/22/20 22:59 06:59 14:59 Intake Total 900 550 Output Total 300 Balance 900 250 Lab Results - Last 24 hrs: Laboratory Results - last 24 hr 12/22/20 12/22/20 12/22/20 Range/Units 08:57 08:57 08:57 WBC 3.61 L (3.98-10.04) K/mm3 RBC 3.61 L (3.98-5.22) M/mm3 Hgb 11.3 (11.2-15.7) gm/dl Hct 34.1 (34.1-44.9) % MCV 94.5 (79.4-94.8) fl MCH 31.3 (25.6-32.2) pg MCHC 33.1 (32.2-35.5) g/dl RDW Std Deviation 41.6 (36.4-46.3) fL Plt Count 153 L (182-369) K/mm3 MPV 11.0 (9.4-12.3) fl Neut % (Auto) 39.9 (34.0-71.1) % Lymph % (Auto) 29.4 (19.3-51.7) % [place] % (Auto) 29.6 H (4.7-12.5) % Eos % (Auto) 0 L (0.7-5.8) Baso % (Auto) 0.3 (0.1-1.2) % Neut # (Auto) 1.44 L (1.56-6.13) K/mm3 Lymph # (Auto) 1.06 L (1.18-3.74) K/mm3 [place] # (Auto) 1.07 H (0.24-0.36) K/mm3 Eos # (Auto) 0.00 L (0.04-0.36) K/mm3 Baso # (Auto) 0.01 (0.01-0.08) K/mm3 D-Dimer, Quantitative 0.97 H (0.19-0.50) mg/L Sodium (136-145) mEq/L Potassium (3.5-5.1) mEq/L Chloride (98-107) mEq/L Carbon Dioxide (21-32) mEq/L Anion Gap (5-15) BUN (7-18) mg/dL Creatinine (0.55-1.02) mg/dL Est Cr Clr Drug Dosing mL/min Estimated GFR (MDRD) (>60) mL/min BUN/Creatinine Ratio (14-18) Glucose (83-115) mg/dL Calcium (8.5-10.1) mg/dL Phosphorus (2.6-4.7) mg/dL Magnesium (1.8-2.4) mg/dl Total Bilirubin (0.2-1.0) mg/dL AST (15-37) U/L ALT (14-59) U/L Alkaline Phosphatase (46-116) U/L C-Reactive Protein 5.5 H* (<1.0) mg/dL Total Protein (6.4-8.2) g/dl Albumin (3.4-5.0) g/dl Globulin gm/dL Albumin/Globulin Ratio (1-2) 01/23/21 Range/Units 08:57 WBC (3.98-10.04) K/mm3 RBC (3.98-5.22) M/mm3 Hgb (11.2-15.7) gm/dl Hct (34.1-44.9) % MCV (79.4-94.8) fl MCH (25.6-32.2) pg MCHC (32.2-35.5) g/dl RDW Std Deviation (36.4-46.3) fL Plt Count (182-369) K/mm3 MPV (9.4-12.3) fl Neut % (Auto) (34.0-71.1) % Lymph % (Auto) (19.3-51.7) % [place] % (Auto) (4.7-12.5) % Eos % (Auto) (0.7-5.8) Baso % (Auto) (0.1-1.2) % Neut # (Auto) (1.56-6.13) K/mm3 Lymph # (Auto) (1.18-3.74) K/mm3 [place] # (Auto) (0.24-0.36) K/mm3 Eos # (Auto) (0.04-0.36) K/mm3 Baso # (Auto) (0.01-0.08) K/mm3 D-Dimer, Quantitative (0.19-0.50) mg/L Sodium 137 (136-145) mEq/L Potassium 3.7 (3.5-5.1) mEq/L Chloride 103 (98-107) mEq/L Carbon Dioxide 20 L (21-32) mEq/L Anion Gap 17.7 H (5-15) BUN 32 H (7-18) mg/dL Creatinine 1.2 H (0.55-1.02) mg/dL Est Cr Clr Drug Dosing 38.18 mL/min Estimated GFR (MDRD) 44 (>60) mL/min BUN/Creatinine Ratio 26.7 H (14-18) Glucose 117 H (83-115) mg/dL Calcium 9.2 (8.5-10.1) mg/dL Phosphorus 3.2 (2.6-4.7) mg/dL Magnesium 2.0 (1.8-2.4) mg/dl Total Bilirubin 0.8 (0.2-1.0) mg/dL AST 16 (15-37) U/L ALT 21 (14-59) U/L Alkaline Phosphatase 52 (46-116) U/L C-Reactive Protein (<1.0) mg/dL Total Protein 7.5 (6.4-8.2) g/dl Albumin 3.2 L (3.4-5.0) g/dl Globulin 4.3 gm/dL Albumin/Globulin Ratio 0.7 L (1-2) Med Orders - Current: Current Medications Acetaminophen (Tylenol) 650 mg PO Q4H PRN PRN Reason: Pain (Mild 1-3)/fever Albuterol (Proventil Hfa) 0 gm INH Q4H PRN PRN Reason: Shortness of Breath Aspirin (Halfprin) 81 mg PO DAILY [facility] Last Admin: 12/22/20 09:19 Dose: 81 mg Documented by: Cholecalciferol (Vitamin D3) 5,000 unit PO DAILY [facility] Last Admin: 12/22/20 09:19 Dose: 5,000 unit Documented by: Dexamethasone (Dexamethasone) 6 mg PO DAILY [facility] Stop: 12/29/20 09:01 Last Admin: 12/22/20 09:19 Dose: 6 mg Documented by: Enoxaparin Sodium (Lovenox) 40 mg SUBCUT DAILY [facility] Last Admin: 12/22/20 09:20 Dose: 40 mg Documented by: Famotidine (Pepcid) 20 mg PO DAILY [facility] Last Admin: 12/22/20 09:19 Dose: 20 mg Documented by: Remdesivir 100 mg/ Sodium (Chloride) 100 mls @ 100 mls/hr IV Q24H [facility] Stop: 12/24/20 21:59 Last Admin: 12/21/20 21:15 Dose: 100 mls/hr Documented by: Ondansetron HCl (Zofran) 4 mg IV Q4H PRN PRN Reason: Nausea/Vomiting Oxycodone HCl (Oxycodone) 5 mg PO Q4H PRN PRN Reason: Pain (moderate 4-6) Sodium Chloride (Saline Flush) 10 ml FLUSH ASDIRECTED PRN PRN Reason: Keep Vein Open Last Admin: 12/20/20 18:21 Dose: 10 ml Documented by: Tiotropium Fenton (Spiriva Respimat) 0 gm INH DAILY [facility] Last Admin: 12/22/20 08:05 Dose: 4 gm Documented by: Zinc Sulfate (Zincate) 220 mg PO DAILY [facility] Last Admin: 12/22/20 09:19 Dose: 220 mg Documented by: Discontinued Medications Dexamethasone (Decadron) 6 mg IVPUSH ONETIME ONE Stop: 12/20/20 19:45 Last Admin: 12/20/20 20:13 Dose: 6 mg Documented by: Remdesivir 200 mg/ Sodium (Chloride) 250 mls @ 250 mls/hr IV ONETIME ONE Stop: 12/20/20 19:44 Last Admin: 12/20/20 20:17 Dose: 250 mls/hr Documented by: Remdesivir 100 mg/ Sodium (Chloride) 100 mls @ 100 mls/hr IV Q24H [facility] Stop: 12/24/20 19:59 Ondansetron HCl (Zofran) 4 mg IVPUSH ONETIME ONE Stop: 12/20/20 18:29 Last Admin: 12/20/20 18:50 Dose: 4 mg Documented by: - Exam Quality Assessment: Denies: Supplemental Oxygen General: Reports: Alert, Oriented HEENT: Reports: Pupils Equal, Mucous Membr. Moist/[place]: Reports: Supple Lungs: Reports: Normal Respiratory Effort, Rales (Mild, improved bibasilar) Cardiovascular: Reports: Regular Rate, Regular Rhythm GI/Abdominal Exam: Normal Bowel Sounds, Soft, Non-Tender, No Organomegaly, No Distention, No Abnormal Bruit Extremities: Normal Inspection, Normal Range of Motion, Non-Tender, No Pedal Edema, Normal Capillary Refill Neurological: Reports: No New Focal Deficit Psy/Mental Status: Reports: Alert, Normal Affect, Normal Mood
== END 2020-12-22 13:20 | disposition home or self-care (01) | DRG 179 ==
LOC: JD.ED 17:54 → JD.MS 21:08
PROVIDERS: ADMIT Family Medicine; ATTEND Family Medicine
PROC: 8E0ZXY6 Isolation (ICD-10-PCS; principal; 2020-12-20)
DX: U07.1 COVID-19 (principal); H54.7 Unspecified visual loss; R79.89 Other specified abnormal findings of blood chemistry; W19.XXXA Unspecified fall, initial encounter; J45.909 Unspecified asthma, uncomplicated; E66.9 Obesity, unspecified; Z90.710 Acquired absence of both cervix and uterus; Z79.82 Long term (current) use of aspirin; Z87.01 Personal history of pneumonia (recurrent); Z79.899 Other long term (current) drug therapy; Z68.25 Body mass index [BMI] 25.0-25.9, adult
CPT/HCPCS: 36415; 36600; 71045; 80053; 82728; 82803; 83605; 83615; 83735; 83880; 84484; 85007; 85027; 85379; 85610; 85730; 86140; 93005; 96365; 96375; 99285; J1100; J2405; J7050; 82306; 84100; 85025; 93010; 94640; 94667; 94668; 94762; 99221; 99239; 99284; A9270-GY; J1650; J8540